=== PATIENT | female | born 1990 | race Caucasian/White ===

== ENCOUNTER 2020-06-14 18:34 | Emergency (ER) | payer SELFPAY ==
[2020-06-14 18:40] VITALS: PULSE 102; O2SAT 100
[2020-06-14 18:41] VITALS: BP 140/76; PULSE 106; RESP 18; TEMP 36.7; O2SAT 100; BMI 24.5
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
[2020-06-14 19:00] VITALS: PULSE 87; O2SAT 100
[2020-06-14] MEDS: BACITRACIN OINT 0.9 GM PCKT 1 APPLIC TOP (19:58)
[2020-06-14] MEDS: HYDROCODONE/ACET 5/325 PREPACK 1 BOTTLE MISC (19:59)
== END 2020-06-14 20:24 | disposition home or self-care (01) ==
PROVIDERS: Emergency Provider Emergency Medicine
DX: K08.89 Other specified disorders of teeth and supporting structures (principal); S02.42XA Fracture of alveolus of maxilla, initial encounter for closed fracture; S00.31XA Abrasion of nose, initial encounter; S00.511A Abrasion of lip, initial encounter; V19.9XXA Pedal cyclist (driver) (passenger) injured in unspecified traffic accident, initial encounter
CPT/HCPCS: 70486; 99284